=== PATIENT | male | born 1965 | race African-American/Black ===

== ENCOUNTER 2016-10-19 17:59 | Inpatient (IN) | payer OTHER, BC ==
--- NOTE | ~2016-10-19 | DS ---
Discharge Summary [facility] [address] [place]. [address] NAME: NEGIN TANG SR : 65 STATUS : DIS IN PAT#: [id number] AGE: 51 ADM/REG DATE : 10/19/16 MR#: [id number] REPORT SERV DATE: 10/22/16 DICTATED BY: CHANEL SERNA DATE: 10/21/16 REPORT STATUS : Draft TRANSCRIBED BY: MODL DATE: 10/21/16 ADMISSION DATE: 10/19/2016 DISCHARGE DATE: 10/21/2016 CONDITION ON DISCHARGE: Stable. DISPOSITION: Discharged to home. ADVICE ON DISCHARGE: To follow up with Dr. Balderrama, [facility], within the next three to four weeks for new-onset mild left ventricular dysfunction and mild mitral regurgitation which may require outpatient testing with both myocardial stress perfusion test and also possibly STEPHANIE; this is per Dr. Balderrama. DIAGNOSES ON DISCHARGE: 1. Acute rhabdomyolysis - resolving. 2. Acute kidney injury - resolved. 3. New-onset or newly diagnosed mild left ventricular dysfunction seen on echocardiogram with a left ventricular ejection fraction of 45% and mild left ventricular hypertrophy along with mild mitral regurgitation. This is all new to patient's diagnoses. Hence, patient will be following up with [facility] within the next four weeks or so with diagnostic testing that will be done as outpatient according to Cardiology or as deemed by Cardiology. Other diagnoses that are stable at this time include hypertension - at this time, for hypertension, we have stopped his lisinopril HCT and started him on metoprolol tartrate or Lopressor 25 mg p.o. b.i.d. along with his Procardia XL twice a day that he already takes at home. Other than that, his myalgia, has completely resolved. Any atypical chest pain that he had so far has completely resolved also, and at least as of now acute myocardial infarction has been ruled out. Other diagnoses that are stable at this time include: 1. Prostate cancer, status post resection which is stable. 2. Peptic ulcer disease in the past with some gastrointestinal bleeding in the past which is stable and not a problem at this time. 3. Dyslipidemia. 4. Irritable bowel syndrome, which are all stable. Consults obtained during this hospitalization include Cardiology consult by Dr. Balderrama. 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 Patient says that he had worked out for several hours and not hydrated himself real well and essentially was admitted with a diagnosis of acute rhabdomyolysis with an elevated CPK of 1500, acute kidney injury with serum creatinine in 1.6 to 1.7 range. He was admitted for IV hydration, and however, when an echocardiogram was obtained, the echo showed mild LV dysfunction with left ventricular hypertrophy and also mild mitral regurgitation. His troponin I was also mildly Discharge Summary [address] [place]. [address] NAME: NEGIN TANG SR : 65 STATUS : DIS IN PAT#: [id number] AGE: 51 ADM/REG DATE : 10/19/16 MR#: [id number] REPORT SERV DATE: 10/22/16 DICTATED BY: CHANEL SERNA DATE: 10/21/16 REPORT STATUS : Draft TRANSCRIBED BY: MODL DATE: 10/21/16 elevated when he came in. This was the reason we obtained a Cardiology consult. Dr. Balderrama consulted and suggested that at this time patient did not require any acute cardiac testing given the scenario and recommended that he follow up with him as an outpatient in the next three to four weeks so that he can get his myocardial perfusion test with rest and stress as an outpatient and also probably a STEPHANIE to evaluate his mitral valve as an outpatient. Also, according to Dr. Balderrama, we started him on beta-myesha. We have stopped his lisinopril HCT given his acute kidney injury and also given that he is being on two other blood pressure medications, namely, a calcium channel myesha and a beta myesha. He is stable on the day of discharge and asymptomatic on the day of discharge. His CBC on the day of discharge shows a WBC count of 4.8, hemoglobin 13.5, hematocrit 41.5, platelet count of 221. Electrolyte profile shows sodium normal at 143, potassium 4.3, BUN 12, creatinine 1.28 which has come down to normal range. Troponin I has come down to normal at 0.04. His CPK continues to be mildly elevated at 1304, but this is much better than 1500 that he had come in with. Medications that he will be sent home on include the following. Patient will be advised to resume the following home medications: Nifedical XL 60 mg p.o. b.i.d., aspirin 81 mg once a day, Flonase nasal spray, fish oil, multivitamin tablets, allopurinol 100 mg once a day for gout. In addition to this, he will also be on metoprolol tartrate 25 mg p.o. b.i.d. Patient is advised to follow up with Dr. Balderrama and also p.r.n. with his PCP. Patient has been advised lots of hydration and to stretch and warm up before he exercises in the future and he understands this. Patient is very concerned about his cardiac condition including his newly-diagnosed LV dysfunction and newly-diagnosed mitral regurgitation for which he will follow up as an outpatient with Cardiology. I have spent about 40 minutes in coordinating discharge care of this patient including face- to-face encounter and summarizing this discharge. MARCIO/GURMEET Chanel Serna M.D. / [id number] CC: Thien Middleton M.D.
--- NOTE | ~2016-10-19 | HP ---
History And Physical [facility] [id number] [place]. [address] NAME: NEGIN TANG SR : 65 STATUS : ADM Tere PAT#: [id number] AGE: 51 ADM/REG DATE : 10/19/16 MR#: [id number] REPORT SERV DATE: 10/20/16 DICTATED BY: GREGORY MALDONADO DATE: 10/19/16 REPORT STATUS : Draft TRANSCRIBED BY: MODFernie DATE: 10/19/16 DATE OF ADMISSION: 10/19/2016 CHIEF COMPLAINT: Cramping all over his body including his arms, shoulders, and legs. 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 History is obtained from the patient and reviewing data available on the Telestream system. According to Mr. Tang, this afternoon, he was in a training facility where he was really pushing it and did multiple sets of weight training on his upper body, triceps, biceps, and lower body. In between, he ran laps around the gymnasium. He kept going until he experienced spasm from the back all the way up his neck and into his head. He thought his body was saying that is enough and he stopped his exercise. Later in the afternoon, when he was back in his office at his desk, he started having severe cramping all over his body, especially in his chest going to both his shoulder and upper extremities. He says it involved all the big muscle groups and the small muscles. Even his face felt it was all cramping up. He also admits that he had not hydrated himself as much as he could have. He had also not passed any urine since his exercise activities and his first urine was here in the ER. Finally, he decided to go to the emergency room to get checked out. He denies any other symptoms associated with this. He had not seen any bleeding, had not had any cough or chest pain or palpitations. In the emergency room, initial workup revealed a slightly elevated troponin of 0.07. His CPK was elevated at 1500 and Hospitalist Service is asked to admit him for further evaluation and treatment. At the time of my evaluation, he denied any chest pain, palpitations, or orthopnea. He had no cough, hemoptysis, night sweats, or weight loss. He has not had any recent falls or loss of consciousness. No history of fevers, chills, nausea, vomiting, or dysuria. No history of hematemesis, hematochezia, or hematuria. No other history of recent travel or exposures other than those mentioned above. PAST MEDICAL HISTORY: Significant for history of prostate cancer, status post resection; history of peptic ulcer disease and bleeding from his peptic ulcers in the past; dyslipidemia; irritable bowel syndrome; essential hypertension. FAMILY HISTORY: Noncontributory. SOCIAL HISTORY: He does not smoke, drink, or use recreational drugs. 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 REVIEW OF SYSTEMS: History And Physical [address] [address] NAME: NEGIN TANG : 65 STATUS : ADM Tere PAT#: [id number] AGE: 51 ADM/REG DATE : 10/19/16 MR#: [id number] REPORT SERV DATE: 10/20/16 DICTATED BY: GREGORY MALDONADO DATE: 10/19/16 REPORT STATUS : Draft TRANSCRIBED BY: GURMEET DATE: 10/19/16 As in history of present illness. All other systems were reviewed in detail and are quite unremarkable. MEDICATIONS: His medications at home were reviewed by me in the chart today and reordered by me. PHYSICAL EXAMINATION: GENERAL: This is a very pleasant 51-year-old, not in any acute distress. HEENT: His head is atraumatic, normocephalic. He is alert, awake, and oriented to time, place, and person. Pupils are equal, reacting to light and accommodating. External ocular muscles are intact. Membranes are moist and pink. Sclerae are nonicteric. NECK: Supple with no jugular venous distention, lymphadenopathy, or thyromegaly. LUNGS: Clear to auscultation with no wheezes, rubs, or crackles. HEART: Sounds are regular with no murmurs, rubs, or gallops. ABDOMEN: Soft, nontender. Bowel sounds are present. There is no organomegaly. EXTREMITIES: Show no cyanosis, clubbing, or edema. NEUROLOGIC: Grossly intact. No focal sensory or motor deficits. There is tremor or cramping at the time of my evaluation. He is able to move all four extremities. Gait is normal. VITAL SIGNS: Today, showed a temperature of 97.9, pulse 93, respirations 25 a minute, blood pressure was 118/87, oxygen saturations are 98% on room air. LABORATORY DATA: Reviewed on the Telestream system showed a sodium of 139, potassium 3.8, chloride 104, and CO2 of 26, BUN was 19 with a creatinine of 1.73 which is up from his baseline of 1.3 to 1.4. His glucose was 74. His magnesium was 2.3, calcium 9.0, albumin 3.9, alkaline phosphatase was 30, ALT and AST were within normal limits. His CPK was elevated at 1595. Troponin was elevated at 0.07. Ionized calcium was 4.92. CBC showed a white blood cell count of 11,400, hemoglobin was 14.5, hematocrit 42.5, and platelet count was 227. His MCV was 87.8. Urinalysis showed negative for protein, no ketones, negative for blood, leukocyte esterase was negative, nitrite was negative. There were one rbc's and one WBC. 12-lead EKG done in the emergency room was reviewed and interpreted by me. There is normal sinus rhythm with a rate of [address]-T changes. There is QT prolongation. No imaging was performed in the emergency room. IMPRESSION: 1. Acute rhabdomyolysis versus acute coronary syndrome. 2. Myalgia. 3. Elevated troponin. 4. Acute kidney injury. 5. Essential hypertension. 6. Chronic kidney disease stage 2. 7. Prostate cancer, status post resection. 8. Peptic ulcer disease with gastrointestinal bleeding in the past. 9. Dyslipidemia. 10.Irritable bowel syndrome. History And Physical [address] [place]. [address] NAME: NEGIN TANG : 65 STATUS : ADM Tere PAT#: [id number] AGE: 51 ADM/REG DATE : 10/19/16 MR#: [id number] REPORT SERV DATE: 10/20/16 DICTATED BY: GREGORY MALDONADO DATE: 10/19/16 REPORT STATUS : Draft TRANSCRIBED BY: GURMEET DATE: 10/19/16 PLAN: We will admit Mr. Tang to the Hospitalist Service to telemetry for a 24-hour observation. We will start him on aggressive hydration with normal saline at 200 an hour along with replenishing his potassium. We will follow this with chemistry, electrolytes, and replete as needed. We will hold statins and LEONORA inhibitors for now and check his renal function again in the morning. We will also follow serial troponin levels to rule out acute coronary event. He may need further workup. We will check an echocardiogram in the morning as well. We will also check his serum myoglobin and urine for myoglobinuria. He will be on unfractionated heparin for DVT prophylaxis at this time. He is on aspirin which we will continue again. We will hold his statins and LEONORA inhibitors for now, probably resume early tomorrow if his labs are acceptable. I have discussed the above plans with the patient. I have discussed the results of the above tests with him, he understands and he agrees with the above plan. Hospitalist Service will be following him during his stay here. Please see today's orders for details. /GURMEET Gregory Maldonado M.D. / [id number] CC: Thien Seay M.D.
--- NOTE | ~2016-10-19 | CN ---
Consultation Report [facility] [address] [place]. [address] NAME: NEGIN TANG SR : 65 STATUS : ADM Tere PAT#: [id number] AGE: 51 ADM/REG DATE : 10/19/16 MR#: [id number] REPORT SERV DATE: 10/21/16 DICTATED BY: ANTHONY CHE DATE: 10/20/16 REPORT STATUS : Draft TRANSCRIBED BY: MODFernie DATE: 10/20/16 DATE OF CONSULTATION: 10/20/2016 REASON: Abnormal troponin, abnormal echocardiogram. 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 He presented to the [facility] Emergency Room with these complaints and was noted to have a very elevated CPK level consistent with rhabdomyolysis. In that setting, he had some renal insufficiency. For unclear reasons, the patient underwent an echocardiogram that showed a mild decrease in LV systolic function. He underwent a troponin value that was mildly elevated 0.07 with the second being 0.09. He denied any chest pain or chest discomfort. He had no significant EKG abnormalities. He denied any history of chest discomfort or congestive heart failure. He does have a positive family history on his mother side for premature coronary disease and a history of hypertension. PAST MEDICAL HISTORY: Notable for history of: 1. Peptic ulcer disease. 2. Hypertension. HOME MEDICATIONS: Include fish oil, lisinopril, Norvasc, 81 mg aspirin. FAMILY HISTORY: Notable for premature coronary disease in several of the patient's maternal side, also notable for diabetes and hypertension. SOCIAL HISTORY: Negative for tobacco or alcohol. No illicit drug use. No use of steroids. The patient participates in very active workout regimen. 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 He is . REVIEW OF SYSTEMS: As noted above. All other systems reviewed are negative. PHYSICAL EXAMINATION: VITAL SIGNS: His blood pressure is 118/70, his pulse is 78, respirations 16, 98% sat on room air. GENERAL: Well developed, well nourished. HEENT: No icterus. Good dentition. NECK: Supple. No masses or thyromegaly LUNGS: Breathing comfortably. No rales or wheezes. COR: Normal S1, S2. No S3 or S4. No murmurs, clicks, rubs. No JVD ABD: Soft, nondistended, nontender, no hepatosplenomegaly. EXT: No clubbing, cyanosis or edema. Peripheral pulses 2+/=bilaterally. SKIN: Warm and dry. No visible lesions. MS: Chest wall without deformity, no obvious clavicular fractures. NEURO/PSYCH: Oriented X3. No anxiety or depression. Consultation Report [address] [place]. [address] NAME: NEGIN TANG SR : 65 STATUS : ADM Tere PAT#: [id number] AGE: 51 ADM/REG DATE : 10/19/16 MR#: [id number] REPORT SERV DATE: 10/21/16 DICTATED BY: ANTHONY CHE DATE: 10/20/16 REPORT STATUS : Draft TRANSCRIBED BY: GURMEET DATE: 10/20/16 DIAGNOSTIC STUDIES: EKG shows sinus rhythm, normal WA, QRS, and QT interval with no evidence of ischemia, infarction, or chamber hypertrophy. The patient on telemetry did show a run of nonsustained ventricular tachycardia that was asymptomatic. An echocardiogram was performed showing an ejection fraction of 45% with moderate mitral regurgitation. Left atrium was mildly enlarged at 4.9 cm. LABORATORY VALUES: His creatinine is 1.5, 1.7 on admission. CPK was 1595 on admission and 1867 today. His troponin was 0.07 yesterday, it was 0.09 today. IMPRESSION: 1. Mild troponin elevation. Not significantly increasing, very well could be just due to his skeletal muscle loss given that it is such a low value and the CPK elevation is so high. He is denying any chest pain or chest discomfort. At this point, I would not want him to undergo either a stress myocardial perfusion study or cardiac catheterization given the rhabdomyolysis and the renal insufficiency that he is currently experiencing. We may consider having him undergo a stress myocardial perfusion imaging study as an outpatient. 2. Abnormal echocardiogram. He has moderate mitral regurgitation on his chest wall echo and mild decrease in left ventricular systolic function. I would recommend repeating the echocardiogram in about four weeks to see if this is persistent. I believe the mitral regurgitation should be followed halfway along with his left ventricular systolic function. At some point, we may wish to get a transesophageal echocardiogram to get a potentially better evaluation of the mitral regurgitation. 3. Nonsustained wide-complex tachycardia. This appears to be most consistent with ventricular tachycardia. The source of this is somewhat unclear. I would recommend using a low dose of beta myesha at this point in time. Again, would strongly consider a myocardial perfusion study at some point when he is not suffering from rhabdomyolysis and his renal function has recovered. We will make arrangements to have him follow up with me in clinic in about four weeks. Addendum: Of note, I am going to add low-dose beta-myesha to current medication regimen. GS/MODL Anthony Che M.D. / [id number] CC: Thien Middleton M.D.
[~2016-10-19 17:59] MED LIST: COLCRYS0.6 MG PO; COSAMIN DS1 TAB PO; EMERGEN-C PO; FISH OIL OTC PO; LISINOPRIL PO; MAGNESIUM OTC PO; NIFEDICAL PO; NIFEDICAL XL60 MG; POTASSIUM OTC PO; PRINZIDE1 TA1 PO; PROTONIX PO
[2016-10-19 19:13] LABS: BASOPHILS 0.1 %; BASOPHILS ABSOLUTE 0.01 10/3/uL (0.0-0.16); EOSINOPHILS 0.4 %; EOSINOPHILS ABSOLUTE 0.05 10/3/uL (0.0-0.53); HEMATOCRIT 42.5 % (40.0-51.0); HEMOGLOBIN 14.5 g/dL (13.6-17.8); IMMATURE GRANULOCYTES 0.4 %; IMMATURE GRANULOCYTES ABSOLUTE 0.04 10/3/uL (0.0-0.11); LYMPHOCYTES 12.9 %; LYMPHOCYTES ABSOLUTE 1.47 10/3/uL (0.67-4.30); MEAN CORPUS HGB CONC 34.1 g/dL (32.0-36.0); MEAN PLATELET VOLUME 8.9 fL (9.2-13.0); MONOCYTES 8.3 %; MONOCYTES ABSOLUTE 0.95 10/3/uL (0.21-1.20); NEUTROPHILS 77.9 %; PLATELET COUNT 227 10/3/uL (150-400); RBC DISTRIBUTION WIDTH 14.4 % (12.0-16.0); RED CELL COUNT 4.84 10/6/uL (4.7-6.1)
[2016-10-19 19:26] LABS: PARTIAL THROMBO TIME 23.3 SEC (22.5-37.2); PROTIME (NOT ORD) 13.3 SEC (12.0-14.5)
[2016-10-19 19:29] LABS: WHITE BLOOD CELLS 11.4 10/3/uL (4.5-10.5)
[2016-10-19 19:30] LABS: ER CBC TAT 0 Hrs 26 Mins; MANUAL DIFF NO %; MEAN CORPUSCULAR VOLUME 87.8 fL (80-100)
[2016-10-19 19:40] LABS: BUN (BLOOD UREA NITROGEN) 19 MG/DL (6-23); CHLORIDE, SERUM 104 MMOL/L (96-112); CO2 (CARBON DIOXIDE) 26 MMOL/L (24-34); CPK 1595 U/L (0-200); CREATININE 1.73 MG/DL (0.70-1.30); GFR AFRICAN AMERICAN 52 ML/MIN (>=60); GFR NON AFRICAN AMERICAN 45 ML/MIN (>=60); POTASSIUM, SERUM 3.8 MMOL/L (3.5-5.3); SGOT(AST) 40 U/L (5-40); SGPT(ALT) 48 U/L (5-65); SODIUM, SERUM 139 MMOL/L (135-148); TOTAL BILIRUBIN 0.4 MG/DL (0-1.2)
[2016-10-19 19:41] LABS: ALBUMIN 3.9 G/DL (3.5-5.0); ALKALINE PHOSPHATASE 30 U/L (45-117); CHEST PAIN PROFILE TAT 0 Hrs 38 Mins; DIRECT BILIRUBIN < 0.1 MG/DL (0.0-0.4); GLUCOSE, SERUM 74 MG/DL (60-99); INDIRECT BILIRUBIN(NOT ORDER) 0.3 MG/DL (0.1-0.9); TROPONIN I 0.07 NG/ML (<0.05)
[2016-10-19] MEDS ORDERED: PRINZIDE1 TA1 PO (20:33)
[2016-10-19] MEDS ORDERED: HALF81 PO (20:34)
[2016-10-19] MEDS ORDERED: NIFEDICAL XL60 MG PO (20:34)
[2016-10-19] MEDS ORDERED: FLONASE NAS (20:34)
[2016-10-19] MEDS ORDERED: THERGRANM PO (20:35)
[2016-10-19] MEDS ORDERED: TEARS PLUS OPH (20:35)
[2016-10-19] MEDS ORDERED: *UNABLE1 (20:35)
[2016-10-19] MEDS ORDERED: OTC ALLERGY MED PO (20:35)
[2016-10-19] MEDS ORDERED: FISH-EPA1000 MG PO (20:35)
[2016-10-19 20:45] LABS: ASCORBIC ACID (UR NOT ORDER) NEG (NEG); BILIRUBIN, URINE NEGATIVE (NEG); ER URINALYSIS TAT 0 Hrs 07 Mins; KETONE, URINE NEGATIVE (NEG); LEUKOCYTE ESTERASE(NOT OR NEG (NEG); NITRITE (URINE) NEG (NEG); WBC (NOT ORDERED) (RFLEX) 1 (0-5)
[2016-10-20 02:12] LABS: MYOGLOBIN, SERUM 748 NG/ML (0-85)
[2016-10-20 05:30] LABS: BASOPHILS 0.2 %; BASOPHILS ABSOLUTE 0.01 10/3/uL (0.0-0.16); EOSINOPHILS 1.6 %; HEMATOCRIT 39.8 % (40.0-51.0); IMMATURE GRANULOCYTES 0.2 %; IMMATURE GRANULOCYTES ABSOLUTE 0.01 10/3/uL (0.0-0.11); LYMPHOCYTES 29.2 %; LYMPHOCYTES ABSOLUTE 1.83 10/3/uL (0.67-4.30); MEAN CORPUS HGB CONC 32.7 g/dL (32.0-36.0); MEAN CORPUSCULAR HEMOGLOB 29.5 pg (26.0-34.0); MEAN CORPUSCULAR VOLUME 90.2 fL (80-100); MEAN PLATELET VOLUME 9.1 fL (9.2-13.0); MONOCYTES 9.9 %; MONOCYTES ABSOLUTE 0.62 10/3/uL (0.21-1.20); NEUTROPHILS 58.9 %; PLATELET COUNT 209 10/3/uL (150-400); RBC DISTRIBUTION WIDTH 14.9 % (12.0-16.0); RED CELL COUNT 4.41 10/6/uL (4.7-6.1)
[2016-10-20 05:32] LABS: MANUAL DIFF NO %; WHITE BLOOD CELLS 6.3 10/3/uL (4.5-10.5)
[2016-10-20 05:55] LABS: CALCIUM, SERUM 8.5 MG/DL (8.5-10.4); CHLORIDE, SERUM 109 MMOL/L (96-112); CK-MB 6.4 NG/ML; CO2 (CARBON DIOXIDE) 28 MMOL/L (24-34); CPK 1867 U/L (0-200); GFR AFRICAN AMERICAN 62 ML/MIN (>=60); GFR NON AFRICAN AMERICAN 53 ML/MIN (>=60); POTASSIUM, SERUM 3.7 MMOL/L (3.5-5.3); SODIUM, SERUM 145 MMOL/L (135-148)
[2016-10-20 05:56] LABS: BUN (BLOOD UREA NITROGEN) 14 MG/DL (6-23); CKMB INDEX (NOT ORD) 0.3; GLUCOSE, SERUM 94 MG/DL (60-99); TROPONIN I 0.09 NG/ML (<0.05)
[2016-10-20 06:20] LABS: ASCORBIC ACID (UR NOT ORDER) NEG (NEG); BILIRUBIN, URINE NEGATIVE (NEG); KETONE, URINE NEGATIVE (NEG); LEUKOCYTE ESTERASE(NOT OR NEG (NEG); WBC (NOT ORDERED) (RFLEX) < 1 (0-5)
[2016-10-20 12:46] LABS: CKMB INDEX (NOT ORD) 0.3; TROPONIN I 0.07 NG/ML (<0.05)
[2016-10-20] MEDS ORDERED: Z100 PO (13:20)
[2016-10-20] MEDS ORDERED: [UNRECOGNIZED DRUG - OTHER] PO (13:20)
[2016-10-20 20:43] LABS: CK-MB 5.9 NG/ML
[2016-10-20 20:44] LABS: CKMB INDEX (NOT ORD) 0.4; TROPONIN I 0.06 NG/ML (<0.05)
[2016-10-21 05:03] LABS: BASOPHILS 0.2 %; BASOPHILS ABSOLUTE 0.01 10/3/uL (0.0-0.16); EOSINOPHILS 3.5 %; EOSINOPHILS ABSOLUTE 0.17 10/3/uL (0.0-0.53); HEMATOCRIT 41.5 % (40.0-51.0); HEMOGLOBIN 13.5 g/dL (13.6-17.8); LYMPHOCYTES 46.7 %; LYMPHOCYTES ABSOLUTE 2.24 10/3/uL (0.67-4.30); MEAN CORPUS HGB CONC 32.5 g/dL (32.0-36.0); MEAN CORPUSCULAR HEMOGLOB 29.3 pg (26.0-34.0); MEAN PLATELET VOLUME 9.4 fL (9.2-13.0); MONOCYTES 9.4 %; MONOCYTES ABSOLUTE 0.45 10/3/uL (0.21-1.20); NEUTROPHILS 40.2 %; NEUTROPHILS ABSOLUTE 1.93 10/3/uL (2.02-8.40); PLATELET COUNT 221 10/3/uL (150-400); RED CELL COUNT 4.61 10/6/uL (4.7-6.1); WHITE BLOOD CELLS 4.8 10/3/uL (4.5-10.5)
[2016-10-21 05:04] LABS: MANUAL DIFF NO %
[2016-10-21 05:26] LABS: BUN (BLOOD UREA NITROGEN) 12 MG/DL (6-23); CALCIUM, SERUM 8.7 MG/DL (8.5-10.4); CHLORIDE, SERUM 109 MMOL/L (96-112); CO2 (CARBON DIOXIDE) 26 MMOL/L (24-34); CPK 1304 U/L (0-200); CREATININE 1.28 MG/DL (0.70-1.30); GFR AFRICAN AMERICAN 75 ML/MIN (>=60); GFR NON AFRICAN AMERICAN 64 ML/MIN (>=60); GLUCOSE, SERUM 99 MG/DL (60-99); POTASSIUM, SERUM 4.3 MMOL/L (3.5-5.3); SODIUM, SERUM 143 MMOL/L (135-148)
[2016-10-21 06:12] LABS: TROPONIN I 0.04 NG/ML (<0.05)
[2016-10-21] MEDS ORDERED: LOP25 PO (12:25)
== END 2016-10-21 13:27 | disposition home or self-care (01) | DRG 683 ==
LOC: ER 17:59 → 6NO 21:55
PROVIDERS: Emergency Medicine; Internal Medicine
DX: N17.9 Acute kidney failure, unspecified (principal); I47.2 Ventricular tachycardia; T79.6XXA Traumatic ischemia of muscle, initial encounter; X58.XXXA Exposure to other specified factors, initial encounter; K58.9 Irritable bowel syndrome, unspecified; I10 Essential (primary) hypertension; I34.0 Nonrheumatic mitral (valve) insufficiency; I51.9 Heart disease, unspecified; Z85.46 Personal history of malignant neoplasm of prostate; Z90.79 Acquired absence of other genital organ(s); Z87.11 Personal history of peptic ulcer disease
CPT/HCPCS: 71020; 80048; 80076; 81001; 82330; 82550; 82553; 83735; 83874; 84100; 84484; 85025; 85610; 85730; 93005; 93306; 99285; A9270-GY